=== PATIENT | male | born 1945 | race Caucasian/White ===

== ENCOUNTER 2021-04-03 15:31 | Inpatient (IN) | payer OTHER ==
[~2021-04-03] VITALS: Ht 172.7 cm; Wt 74.0 kg
[~2021-04-03 15:31] MED LIST: ASPI81TA45 PO; ATOR-2 PO; ENAL2.5T8 PO; GABA-826 PO; GLIP5TAB10 PO; METO25TA35 PO; NITR0.4T28 SL; TICA90TA PO; [UNRECOGNIZED DRUG - REMARK] PO
--- NOTE | 2021-04-03 15:45 | NUR ---
TASK RN NOTE: JAIME, EMS CALLED PT HAD WITNESSED GLF EXITING STORE THIS AM, PT FOUND ALTERED WITH SLURRED SPEECH. UNKNOWN LAST WELL TIME, GLUCOSE READING "HIGH" SYSTEM SALES CONSULTANT. PT DENIES MIDLINE CERVICAL TENDERNESS ON PALPATION. REPEAT FINGERSTICK GLUCOSE READING HIGH IN ED. 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 EKG TAKEN BY EDT ON ARRIVAL. CODE NEURO CALLED ON ARRIVAL, CANCELLED PER EDMD RICHARD AFTER MD EXAMINED. PRIMARY RN TUSHAR AT BEDSIDE, PT AWAITING LAB AND CT.
[2021-04-03 15:54] LABS: BASOPHILS % (AUTO) 0 % (0-1); EOSINOPHILS % (AUTO) 2 % (1-7); LYMPHOCYTES % (AUTO) 9 % (22-44); MEAN CORPUSCULAR HEMOGLOBIN 29.8 pg (27.5-34.5); MEAN CORPUSCULAR HGB CONC 33.9 g/dL (33.2-36.2); MEAN PLATELET VOLUME 7.6 fL (7.4-10.4); MONOCYTES % (AUTO) 8 % (2-9); NEUTROPHILS % (AUTO) 81 % (42-75); PLATELET COUNT 315 x10^3/uL (130-400); RED CELL DISTRIBUTION WIDTH 13.6 % (9.4-14.8)
[2021-04-03] MEDS ORDERED: SODIUM CHLORIDE 0.9% 1,000 ML IV ONE (16:00)
[2021-04-03] MEDS ORDERED: SODIUM CHLORIDE FLUSH 10ML SYR IVF ONE (16:00)
--- NOTE | 2021-04-03 16:02 | NUR ---
PT TO CT SCAN
[2021-04-03 16:07] LABS: ALBUMIN 2.9 g/dL (3.4-5.0); ANION GAP 12 mmol/L (5-15); CALCIUM 9.7 mg/dL (8.5-10.1); CHLORIDE 96 mmol/L (98-107); CREATININE 1.51 mg/dL (0.7-1.3)
[2021-04-03 16:08] LABS: ACETONE, SERUM Negative (Negative)
[2021-04-03 16:12] LABS: ALANINE AMINOTRANSFERASE 15 U/L (12-78); ALKALINE PHOSPHATASE 137 U/L (45-117); BILIRUBIN,TOTAL 0.5 mg/dL (0.2-1.0); CREATINE KINASE, TOTAL 17 U/L (39-308); TOTAL PROTEIN 6.5 g/dL (6.4-8.2); TROPONIN I < 0.015 ng/mL (0.000-0.045)
[2021-04-03] MEDS ORDERED: OMNIPAQUE 350 MG/ML, 100ML BOTTLE ONE (16:19)
--- NOTE | 2021-04-03 16:21 | NUR ---
BELONGINGS WITH SECURITY, PANTS, SHIRT AND BOOTS
--- NOTE | 2021-04-03 16:36 | NUR ---
STRAIGHT CATH FOR URINE, X RAY COMPLETED.
--- NOTE | 2021-04-03 16:50 | NUR ---
PT MORE ALERT, DRINKING WATER WELL. BS [id number], NOTIFIED .
[2021-04-03] MEDS ORDERED: INSULIN SINGLE DOSE, ER ONE ×2 (17:16→17:18)
[2021-04-03] MEDS ORDERED: ACETAMINOPHEN 500 MG TABLET ONE (17:16)
[2021-04-03 17:19] LABS: MICROSCOPIC AUTO
--- NOTE | 2021-04-03 17:26 | NUR ---
MEDICATED PER ORDERS, BLOOD CULTURE DRAWN PRIOR TO ADMINISTRATION OF ANTIBX. PT VERBALIZED NO NEEDS AT THIS TIME
[2021-04-03] MEDS ORDERED: CEFTRIAXONE 1,000 MG in DEXTROSE 5% 50 ML IVPB ONE (17:30)
[2021-04-03] MEDS ORDERED: INSULIN REGULAR 100 UNITS/ML, 3ML VIAL SQ-INSULIN ONE (17:30)
[2021-04-03] MEDS ORDERED: SODIUM CHLORIDE 0.9%, 500ML IVBOLUS ONE (17:30)
[2021-04-03] MEDS ORDERED: ACETAMINOPHEN 325 MG TABLET PO ONE (17:30)
--- NOTE | 2021-04-03 17:57 | NUR ---
DEANA TRONCOSO. NOTIFED
[2021-04-03] MEDS ORDERED: NITROGLYCERIN SINGLE TAB 0.4 MG SL PRN (18:00)
[2021-04-03] MEDS ORDERED: ONDANSETRON ODT 4 MG PO PRN (18:00)
[2021-04-03] MEDS ORDERED: POLYETHYLENE GLYCOL 17 GM PACKET PO PRN (18:00)
[2021-04-03] MEDS ORDERED: BISACODYL 10 MG SUPP PR PRN (18:00)
[2021-04-03] MEDS ORDERED: ACETAMINOPHEN 325 MG TABLET PO PRN (18:00)
--- NOTE | 2021-04-03 18:33 | NUR ---
REPORT TO ENIO SPRING, PLAN OF CARE DISCUSSED.
[2021-04-03 20:43] VITALS: BP 120/70
[2021-04-03] MEDS: ENALAPRIL 2.5MG TABLET PO SCH (21:00)
[2021-04-03] MEDS: GABAPENTIN 100 MG CAPSULE PO SCH (21:05)
[2021-04-03] MEDS: METOPROLOL TARTRATE 25 MG TAB PO SCH (21:05)
[2021-04-03] MEDS: ATORVASTATIN 80 MG TABLET PO SCH (21:05)
[2021-04-03] MEDS: HEPARIN 5,000 UNITS/ML, 1ML SQ SCH (21:05)
[2021-04-03] MEDS: SODIUM CHLORIDE 0.9% 1,000 ML IV SCH (21:06)
[2021-04-03] MEDS ORDERED: ENALAPRIL 5MG TABLET ONE (21:16)
[2021-04-03] MEDS: TICAGRELOR 90 MG TABLET PO SCH (21:20)
[2021-04-03 21:21] LABS: TROPONIN I < 0.015 ng/mL (0.000-0.045)
[2021-04-03] MEDS: INSULIN LISPRO 100 UNITS/ML, PEN SQ-INSULIN SCH (23:00)
[2021-04-04 00:05] VITALS: BP 119/70
[2021-04-04] MEDS: HEPARIN 5,000 UNITS/ML, 1ML SQ SCH ×3 (01:45→17:29)
[2021-04-04] MEDS: INSULIN LISPRO 100 UNITS/ML, PEN SQ-INSULIN SCH ×4 (03:00→20:10)
[2021-04-04 04:08] LABS: BASOPHILS % (AUTO) 0 % (0-1); EOSINOPHILS % (AUTO) 3 % (1-7); LYMPHOCYTES % (AUTO) 14 % (22-44); MEAN CORPUSCULAR HEMOGLOBIN 29.5 pg (27.5-34.5); MEAN CORPUSCULAR HGB CONC 34.2 g/dL (33.2-36.2); MEAN PLATELET VOLUME 7.2 fL (7.4-10.4); MONOCYTES % (AUTO) 8 % (2-9); NEUTROPHILS % (AUTO) 75 % (42-75); PLATELET COUNT 354 x10^3/uL (130-400); RED BLOOD COUNT 4.68 x10^6/uL (4.38-5.82); RED CELL DISTRIBUTION WIDTH 13.4 % (9.4-14.8)
[2021-04-04 04:14] LABS: CALCIUM 9.5 mg/dL (8.5-10.1); CREATININE 0.72 mg/dL (0.7-1.3)
[2021-04-04] MEDS: SODIUM CHLORIDE 0.9% 1,000 ML IV SCH ×3 (04:16→17:29)
[2021-04-04 04:17] LABS: TROPONIN I < 0.015 ng/mL (0.000-0.045)
[2021-04-04 04:31] LABS: ANION GAP 8 mmol/L (5-15); CHLORIDE 109 mmol/L (98-107)
[2021-04-04] MEDS: METOPROLOL TARTRATE 25 MG TAB PO SCH ×2 (05:09→17:28)
[2021-04-04] MEDS: ENALAPRIL 2.5MG TABLET PO SCH ×2 (10:22→20:08)
[2021-04-04] MEDS: GABAPENTIN 100 MG CAPSULE PO SCH ×2 (10:22→20:08)
[2021-04-04] MEDS: ASPIRIN 81 MG TABLET EC PO SCH (10:23)
[2021-04-04] MEDS: TICAGRELOR 90 MG TABLET PO SCH ×2 (10:23→20:08)
[2021-04-04] MEDS: SENNA/DOCUSATE TABLET PO SCH (10:23)
[2021-04-04 10:24] VITALS: BP 131/75
[2021-04-04] MEDS ORDERED: POTASSIUM CHLORIDE 20 MEQ TAB.ER.PRT PO ONE (13:30)
[2021-04-04 13:40] VITALS: BP 112/65
[2021-04-04] MEDS: CEFTRIAXONE 1,000 MG in DEXTROSE 5% 50 ML IVPB SCH (17:24)
[2021-04-04 19:09] VITALS: BP 137/78
[2021-04-04] MEDS ORDERED: TRAZ-175 PO (19:22)
[2021-04-04] MEDS ORDERED: TAMS-11 PO (19:22)
[2021-04-04] MEDS: ATORVASTATIN 80 MG TABLET PO SCH (20:08)
[2021-04-05] MEDS: SODIUM CHLORIDE 0.9% 1,000 ML IV SCH (00:50)
[2021-04-05 01:52] VITALS: BP 132/87
[2021-04-05] MEDS: INSULIN LISPRO 100 UNITS/ML, PEN SQ-INSULIN SCH ×4 (02:26→19:51)
[2021-04-05] MEDS: HEPARIN 5,000 UNITS/ML, 1ML SQ SCH ×3 (02:26→17:15)
[2021-04-05] MEDS: METOPROLOL TARTRATE 25 MG TAB PO SCH ×2 (05:51→17:16)
[2021-04-05] MEDS ORDERED: GLIPIZIDE MC SCH (07:30)
[2021-04-05 07:53] VITALS: BP 122/69
[2021-04-05 09:12] LABS: BASOPHILS % (AUTO) 1 % (0-1); EOSINOPHILS % (AUTO) 3 % (1-7); LYMPHOCYTES % (AUTO) 14 % (22-44); MEAN CORPUSCULAR HEMOGLOBIN 29.3 pg (27.5-34.5); MEAN CORPUSCULAR HGB CONC 34.2 g/dL (33.2-36.2); MEAN PLATELET VOLUME 7.2 fL (7.4-10.4); MONOCYTES % (AUTO) 7 % (2-9); NEUTROPHILS % (AUTO) 76 % (42-75); PLATELET COUNT 370 x10^3/uL (130-400); RED BLOOD COUNT 5.35 x10^6/uL (4.38-5.82); RED CELL DISTRIBUTION WIDTH 13.6 % (9.4-14.8)
[2021-04-05 09:16] LABS: ALBUMIN 3.1 g/dL (3.4-5.0); CALCIUM 9.8 mg/dL (8.5-10.1); CHLORIDE 107 mmol/L (98-107)
[2021-04-05 09:21] LABS: ALANINE AMINOTRANSFERASE 15 U/L (12-78); ALKALINE PHOSPHATASE 151 U/L (45-117); ANION GAP 4 mmol/L (5-15); BILIRUBIN,TOTAL 0.7 mg/dL (0.2-1.0); TOTAL PROTEIN 7.1 g/dL (6.4-8.2)
[2021-04-05] MEDS: GABAPENTIN 100 MG CAPSULE PO SCH ×2 (09:32→19:49)
[2021-04-05] MEDS: SENNA/DOCUSATE TABLET PO SCH (09:33)
[2021-04-05] MEDS: TICAGRELOR 90 MG TABLET PO SCH ×2 (09:33→19:49)
[2021-04-05] MEDS: ASPIRIN 81 MG TABLET EC PO SCH (09:33)
[2021-04-05] MEDS: ENALAPRIL 2.5MG TABLET PO SCH ×2 (09:34→19:49)
[2021-04-05 14:51] VITALS: BP 127/69
[2021-04-05] MEDS: CEFTRIAXONE 1,000 MG in DEXTROSE 5% 50 ML IVPB SCH (17:15)
[2021-04-05 19:01] VITALS: BP 110/67
[2021-04-05] MEDS: ATORVASTATIN 80 MG TABLET PO SCH (19:49)
[2021-04-06 01:41] VITALS: BP 134/79
[2021-04-06] MEDS: HEPARIN 5,000 UNITS/ML, 1ML SQ SCH ×3 (02:36→17:00)
[2021-04-06] MEDS: INSULIN LISPRO 100 UNITS/ML, PEN SQ-INSULIN SCH ×4 (02:37→20:45)
[2021-04-06] MEDS: METOPROLOL TARTRATE 25 MG TAB PO SCH ×2 (05:16→18:12)
[2021-04-06 07:55] LABS: BASOPHILS % (AUTO) 1 % (0-1); EOSINOPHILS % (AUTO) 2 % (1-7); LYMPHOCYTES % (AUTO) 15 % (22-44); MEAN CORPUSCULAR HEMOGLOBIN 29.7 pg (27.5-34.5); MEAN PLATELET VOLUME 7.2 fL (7.4-10.4); MONOCYTES % (AUTO) 9 % (2-9); NEUTROPHILS % (AUTO) 73 % (42-75); PLATELET COUNT 326 x10^3/uL (130-400); RED BLOOD COUNT 5.02 x10^6/uL (4.38-5.82); RED CELL DISTRIBUTION WIDTH 13.5 % (9.4-14.8)
[2021-04-06 07:59] LABS: ALBUMIN 2.6 g/dL (3.4-5.0); ANION GAP 7 mmol/L (5-15); CALCIUM 8.9 mg/dL (8.5-10.1); CHLORIDE 109 mmol/L (98-107); CREATININE 0.78 mg/dL (0.7-1.3)
[2021-04-06 08:55] VITALS: BP 126/75
[2021-04-06] MEDS: ASPIRIN 81 MG TABLET EC PO SCH (09:07)
[2021-04-06] MEDS: GABAPENTIN 100 MG CAPSULE PO SCH ×2 (09:08→20:45)
[2021-04-06] MEDS: SENNA/DOCUSATE TABLET PO SCH (09:08)
[2021-04-06] MEDS: TICAGRELOR 90 MG TABLET PO SCH ×2 (09:09→20:45)
[2021-04-06] MEDS: ENALAPRIL 2.5MG TABLET PO SCH ×2 (09:09→20:45)
[2021-04-06 13:02] VITALS: BP 132/78
[2021-04-06] MEDS: CEFTRIAXONE 1,000 MG in DEXTROSE 5% 50 ML IVPB SCH (16:59)
[2021-04-06] MEDS: metFORMIN 500 MG TABLET PO SCH (17:00)
[2021-04-06 19:02] VITALS: BP 107/70
[2021-04-06] MEDS: ATORVASTATIN 80 MG TABLET PO SCH (20:45)
[2021-04-07 00:56] VITALS: BP 101/67
[2021-04-07] MEDS: HEPARIN 5,000 UNITS/ML, 1ML SQ SCH ×3 (02:10→16:45)
[2021-04-07] MEDS: INSULIN LISPRO 100 UNITS/ML, PEN SQ-INSULIN SCH ×4 (03:30→21:26)
[2021-04-07 04:21] LABS: CLOSTRIDIUM DIFFICILE ANTIGEN NEGATIVE; CLOSTRIDIUM DIFFICILE TOXIN NEGATIVE (Negative)
[2021-04-07] MEDS: METOPROLOL TARTRATE 25 MG TAB PO SCH ×2 (05:45→16:45)
[2021-04-07 06:50] VITALS: BP 117/78
[2021-04-07 07:38] LABS: BASOPHILS % (AUTO) 1 % (0-1); EOSINOPHILS % (AUTO) 2 % (1-7); LYMPHOCYTES % (AUTO) 17 % (22-44); MEAN CORPUSCULAR HEMOGLOBIN 29.4 pg (27.5-34.5); MEAN CORPUSCULAR HGB CONC 34.4 g/dL (33.2-36.2); MEAN PLATELET VOLUME 7.5 fL (7.4-10.4); MONOCYTES % (AUTO) 7 % (2-9); NEUTROPHILS % (AUTO) 74 % (42-75); PLATELET COUNT 354 x10^3/uL (130-400); RED BLOOD COUNT 5.28 x10^6/uL (4.38-5.82); RED CELL DISTRIBUTION WIDTH 13.8 % (9.4-14.8)
[2021-04-07 07:47] LABS: ALBUMIN 2.8 g/dL (3.4-5.0); ANION GAP 3 mmol/L (5-15); CALCIUM 9.6 mg/dL (8.5-10.1); CHLORIDE 111 mmol/L (98-107); CREATININE 0.82 mg/dL (0.7-1.3)
[2021-04-07] MEDS: TICAGRELOR 90 MG TABLET PO SCH ×2 (09:06→21:25)
[2021-04-07] MEDS: ASPIRIN 81 MG TABLET EC PO SCH (09:06)
[2021-04-07] MEDS: SENNA/DOCUSATE TABLET PO SCH (09:07)
[2021-04-07] MEDS: metFORMIN 500 MG TABLET PO SCH ×2 (09:07→16:45)
[2021-04-07] MEDS: GABAPENTIN 100 MG CAPSULE PO SCH ×2 (09:07→21:25)
[2021-04-07] MEDS: ENALAPRIL 2.5MG TABLET PO SCH ×2 (09:07→21:25)
[2021-04-07 13:25] VITALS: BP 116/73
[2021-04-07] MEDS: CEFTRIAXONE 1,000 MG in DEXTROSE 5% 50 ML IVPB SCH (16:45)
[2021-04-07 20:24] VITALS: BP 121/73
[2021-04-07] MEDS: ATORVASTATIN 80 MG TABLET PO SCH (21:25)
[2021-04-08 01:41] VITALS: BP 115/75
[2021-04-08] MEDS: HEPARIN 5,000 UNITS/ML, 1ML SQ SCH ×3 (02:09→17:06)
[2021-04-08] MEDS: INSULIN LISPRO 100 UNITS/ML, PEN SQ-INSULIN SCH ×4 (02:09→20:55)
[2021-04-08] MEDS: METOPROLOL TARTRATE 25 MG TAB PO SCH ×2 (05:38→17:06)
[2021-04-08 06:59] LABS: BASOPHILS % (AUTO) 1 % (0-1); EOSINOPHILS % (AUTO) 2 % (1-7); LYMPHOCYTES % (AUTO) 17 % (22-44); MEAN CORPUSCULAR HEMOGLOBIN 29.1 pg (27.5-34.5); MEAN CORPUSCULAR HGB CONC 34.2 g/dL (33.2-36.2); MEAN PLATELET VOLUME 7.7 fL (7.4-10.4); MONOCYTES % (AUTO) 7 % (2-9); NEUTROPHILS % (AUTO) 73 % (42-75); PLATELET COUNT 366 x10^3/uL (130-400); RED BLOOD COUNT 5.31 x10^6/uL (4.38-5.82); RED CELL DISTRIBUTION WIDTH 13.8 % (9.4-14.8)
[2021-04-08 07:14] LABS: CHLORIDE 109 mmol/L (98-107)
[2021-04-08 07:23] LABS: ANION GAP 10 mmol/L (5-15); CALCIUM 9.4 mg/dL (8.5-10.1)
[2021-04-08] MEDS: GABAPENTIN 100 MG CAPSULE PO SCH ×2 (07:54→20:41)
[2021-04-08] MEDS: SENNA/DOCUSATE TABLET PO SCH (07:54)
[2021-04-08] MEDS: ASPIRIN 81 MG TABLET EC PO SCH (07:54)
[2021-04-08] MEDS: ENALAPRIL 2.5MG TABLET PO SCH ×2 (07:54→20:41)
[2021-04-08] MEDS: metFORMIN 500 MG TABLET PO SCH ×2 (07:54→17:06)
[2021-04-08] MEDS: TICAGRELOR 90 MG TABLET PO SCH ×2 (07:54→20:40)
[2021-04-08 08:04] VITALS: BP 113/72
[2021-04-08 11:50] VITALS: BP 126/83
[2021-04-08] MEDS: CEFTRIAXONE 1,000 MG in DEXTROSE 5% 50 ML IVPB SCH (17:07)
[2021-04-08 20:00] VITALS: BP 116/67
[2021-04-08] MEDS: ATORVASTATIN 80 MG TABLET PO SCH (20:40)
[2021-04-09] MEDS: HEPARIN 5,000 UNITS/ML, 1ML SQ SCH ×3 (01:46→17:17)
[2021-04-09 02:00] VITALS: BP 128/74
[2021-04-09] MEDS: INSULIN LISPRO 100 UNITS/ML, PEN SQ-INSULIN SCH ×4 (02:20→21:13)
[2021-04-09 05:20] LABS: BASOPHILS % (AUTO) 0 % (0-1); EOSINOPHILS % (AUTO) 3 % (1-7); LYMPHOCYTES % (AUTO) 20 % (22-44); MEAN CORPUSCULAR HEMOGLOBIN 29.9 pg (27.5-34.5); MEAN PLATELET VOLUME 7.7 fL (7.4-10.4); MONOCYTES % (AUTO) 7 % (2-9); NEUTROPHILS % (AUTO) 69 % (42-75); PLATELET COUNT 339 x10^3/uL (130-400); RED BLOOD COUNT 5.05 x10^6/uL (4.38-5.82); RED CELL DISTRIBUTION WIDTH 13.5 % (9.4-14.8)
[2021-04-09 05:27] LABS: ALBUMIN 2.9 g/dL (3.4-5.0); CREATININE 0.81 mg/dL (0.7-1.3)
[2021-04-09 05:38] LABS: ANION GAP 8 mmol/L (5-15); CHLORIDE 109 mmol/L (98-107)
[2021-04-09] MEDS: METOPROLOL TARTRATE 25 MG TAB PO SCH ×2 (05:53→17:18)
[2021-04-09 07:01] VITALS: BP 99/62
[2021-04-09] MEDS: SENNA/DOCUSATE TABLET PO SCH (09:32)
[2021-04-09] MEDS: ASPIRIN 81 MG TABLET EC PO SCH (09:55)
[2021-04-09] MEDS: GABAPENTIN 100 MG CAPSULE PO SCH ×2 (09:56→20:59)
[2021-04-09] MEDS: TICAGRELOR 90 MG TABLET PO SCH ×2 (09:56→21:00)
[2021-04-09] MEDS: ENALAPRIL 2.5MG TABLET PO SCH ×2 (09:56→20:59)
[2021-04-09] MEDS: metFORMIN 500 MG TABLET PO SCH ×2 (09:56→17:17)
[2021-04-09 12:48] VITALS: BP 115/80
[2021-04-09] MEDS: CEFTRIAXONE 1,000 MG in DEXTROSE 5% 50 ML IVPB SCH (17:18)
[2021-04-09 20:09] VITALS: BP 120/76
[2021-04-09] MEDS: ATORVASTATIN 80 MG TABLET PO SCH (21:00)
[2021-04-10 01:00] VITALS: BP 110/74
[2021-04-10] MEDS: HEPARIN 5,000 UNITS/ML, 1ML SQ SCH ×2 (02:34→12:24)
[2021-04-10] MEDS: INSULIN LISPRO 100 UNITS/ML, PEN SQ-INSULIN SCH ×3 (02:35→15:55)
[2021-04-10] MEDS: METOPROLOL TARTRATE 25 MG TAB PO SCH (05:31)
[2021-04-10 06:25] LABS: BASOPHILS % (AUTO) 1 % (0-1); EOSINOPHILS % (AUTO) 2 % (1-7); LYMPHOCYTES % (AUTO) 18 % (22-44); MEAN CORPUSCULAR HEMOGLOBIN 29.2 pg (27.5-34.5); MEAN CORPUSCULAR HGB CONC 34.1 g/dL (33.2-36.2); MEAN PLATELET VOLUME 7.3 fL (7.4-10.4); MONOCYTES % (AUTO) 8 % (2-9); NEUTROPHILS % (AUTO) 71 % (42-75); PLATELET COUNT 318 x10^3/uL (130-400); RED BLOOD COUNT 5.17 x10^6/uL (4.38-5.82); RED CELL DISTRIBUTION WIDTH 13.8 % (9.4-14.8)
[2021-04-10 06:37] LABS: ANION GAP 3 mmol/L (5-15); CALCIUM 9.3 mg/dL (8.5-10.1); CHLORIDE 108 mmol/L (98-107); CREATININE 0.97 mg/dL (0.7-1.3)
[2021-04-10 08:26] VITALS: BP 131/79
[2021-04-10] MEDS: TICAGRELOR 90 MG TABLET PO SCH (08:53)
[2021-04-10] MEDS: metFORMIN 500 MG TABLET PO SCH ×2 (08:53→17:20)
[2021-04-10] MEDS: GABAPENTIN 100 MG CAPSULE PO SCH (08:53)
[2021-04-10] MEDS: ENALAPRIL 2.5MG TABLET PO SCH (08:53)
[2021-04-10] MEDS: ASPIRIN 81 MG TABLET EC PO SCH (08:53)
[2021-04-10] MEDS: SENNA/DOCUSATE TABLET PO SCH (08:54)
[2021-04-10 13:22] VITALS: BP 128/77
[2021-04-10] MEDS ORDERED: INSU100I11 SQ-INSULIN (16:00)
[2021-04-10] MEDS ORDERED: GLIP5TAB10 PO (16:00)
== END 2021-04-10 18:02 | DRG 871 ==
LOC: EDBD 15:31 → MERGE 15:31 → ED 16:06 → EDIP 17:13 → 4EST 19:11
PROVIDERS: ADMIT Internal Medicine; ATTEND Internal Medicine
DX: A41.51 Sepsis due to Escherichia coli [E. coli] (principal); E11.00 Type 2 diabetes mellitus with hyperosmolarity without nonketotic hyperglycemic-hyperosmolar coma (NKHHC); G93.41 Metabolic encephalopathy; N39.0 Urinary tract infection, site not specified; I50.22 Chronic systolic (congestive) heart failure; I25.5 Ischemic cardiomyopathy; R13.10 Dysphagia, unspecified; E11.42 Type 2 diabetes mellitus with diabetic polyneuropathy; E11.65 Type 2 diabetes mellitus with hyperglycemia; E78.5 Hyperlipidemia, unspecified; E86.0 Dehydration; I11.0 Hypertensive heart disease with heart failure; I25.10 Atherosclerotic heart disease of native coronary artery without angina pectoris; I25.2 Old myocardial infarction; Z79.4 Long term (current) use of insulin; Z83.3 Family history of diabetes mellitus; Z91.14 Patient's other noncompliance with medication regimen; Z91.19 Patient's noncompliance with other medical treatment and regimen; Z88.0 Allergy status to penicillin; Z88.5 Allergy status to narcotic agent; Z79.899 Other long term (current) drug therapy; Z88.6 Allergy status to analgesic agent; Z88.8 Allergy status to other drugs, medicaments and biological substances
CPT/HCPCS: 70450; 70496; 70498; 71045; 80047; 80048; 80053; 80069; 80320; 81001; 82010; 82550; 82607; 82800; 82947; 82962; 83036; 83605; 83735; 84145; 84443; 84484; 85025; 87040; 87077; 87086; 87186; 87324; 93005; 96361; 96365; G0378; J0696; J1644; Q9967; G0480; J1815; J7030; J7040